=== PATIENT | male | born 1990 | race Caucasian/White ===

== ENCOUNTER → 2021-02-25 | Outpatient (CLI) | payer BC, OTHER ==
[~2021-02-25] MED LIST: CARAFATE1 GM PO; COLACE100 MG PO; DECADRON6 MG PO; NORCO 7.5-3251 EACH PO; PEPCID40 MG PO; PROTONIX40 MG PO; ZITHROMAX250 MG PO; ZOFRAN 4 MG TAB4 MG PO; ZOFRAN ODT 4 MG4 MG PO
== END ==
LOC: RAD 12:38
DX: J18.9 Pneumonia, unspecified organism (principal); R05 Cough; R50.9 Fever, unspecified
CPT/HCPCS: 71046

== ENCOUNTER 2022-01-13 15:21 | Emergency (ER) | payer BC | END 2022-01-13 16:18 | disposition left against medical advice (07) | LOC: ER1 15:21 | DX: Z53.21 Procedure and treatment not carried out due to patient leaving prior to being seen by health care provider (principal) ==